=== PATIENT | female | born 1990 | race African-American/Black ===

== ENCOUNTER 2021-08-15 00:26 | Emergency (ER) | payer SELFPAY ==
[~2021-08-15] VITALS: Ht 160 cm; Wt 54.4 kg
[2021-08-15 02:27] VITALS: BP 114/71
[2021-08-15] MEDS ORDERED: PROM6.256 PO (02:44)
--- NOTE | 2021-08-15 03:01 | NUR ---
Patient discharged to home in stable condition. Written and verbal after care instructions given. Patient verbalizes understanding of instruction. Pt ambulatory with a steady gait
== END 2021-08-15 03:02 | disposition home or self-care (01) ==
LOC: ER 00:44
DX: R05.9 Cough, unspecified (principal); Z76.5 Malingerer [conscious simulation]